=== PATIENT | female | born 1945 | race American Indian/Alaskan Native ===

== ENCOUNTER 2017-02-02 10:50 | Inpatient (IN) | payer OTHER ==
[~2017-02-02] VITALS: Ht 152.4 cm; Wt 79.4 kg
--- NOTE | ~2017-02-02 | EKG ---
[address] [address] ELECTROCARDIOGRAM REPORT Name: KRAIG PARDO Room #: 436-P [facility] [place] .R.#: [id number] Admission: 02/03/17 Attend Phys: Hilario Price Discharge: 02/03/17 Date of : 45 Report #: [id number] THIS REPORT FOR: //name// [facility] ED Test Date: 2017-02-02 Test Time: 11:15:24 Pat Name: KRAIG PARDO Department: Room: [facility] Gender: F [employer] Supervisor: [id number] : 1945 Requested By: Harjit Hdez Order Number: [id number] MD: Blayne Stephens Measurements Intervals [place] Rate: 72 P: 33 NE: 194 QRS: 1 QRSD: 112 T: 35 QT: 421 QTc: 461 Interpretive Statements Sinus rhythm Borderline intraventricular conduction delay No previous ECG available for comparison Electronically Signed On 02-03-2017 13:20:27 CDT by Blayne Stephens [email or web address] <ELECTRONICALLY SIGNED> By: Blayne Stephens MD 02/03/17 1320 14 Blayne Stephens MD /EMILY
[~2017-02-02 10:50] MED LIST: ALTACE10 M1 PO; BENTYL 20 MG TA20 M1 PO; CADUET 10 MG-11 EACH PO; CALCIUM PO; CENTRUM SILVER1 EAC1 PO; CYCLOBENZAPRINE10 MG PO; CYMBALTA60 MG PO; GLUCOPHAGE XR500 MG PO; IBUPROFEN 400400 M1 PO; KLOR-CON 1010 MEQ; KLOR-CON 1010 MEQ PO; LEVOTHROID125 MCG PO; NEXIUM40 MG PO; RANITIDINE 150150 MG PO; TRAMADOL 50 MG50 MG PO; TRIAMTERENE-HC1 EAC3 PO
[2017-02-02 10:54] VITALS: BP 203/87
[2017-02-02] MEDS ORDERED: ATIVAN0.5 MG (11:12)
[2017-02-02] MEDS ORDERED: LIDODERM1 EACH (11:12)
[2017-02-02] MEDS ORDERED: PAMELOR25 MG PO (11:13)
[2017-02-02] MEDS ORDERED: PREDNISONE 10 M10 MG PO (11:14)
[2017-02-02] MEDS ORDERED: ATORVASTATIN CA40 MG (11:14)
[2017-02-02] MEDS ORDERED: BYSTOLIC 5 MG5 M1 PO (11:15)
[2017-02-02] MEDS ORDERED: HYDROCODON-ACE1 EAC7 (11:15)
[2017-02-02 11:36] LABS: HEMATOCRIT 33.7 % (37.0-47.0); HEMOGLOBIN 11.2 gm/dL (12.0-15.0); MANUAL DIFF YES; MCH 30.6 pg (26.0-34.0); MCHC 33.2 g/dL (28.0-37.0); MCV 92.1 fL (80.0-100.0); PLATELET COUNT 405 thou/uL (150-400); RBC 3.66 mil/uL (4.20-5.00); RDW 13.8 % (10.5-14.5); WBC 16.1 thou/uL (4.0-11.0)
[2017-02-02 11:45] LABS: ANION GAP 10 mmol/L (7-16); BUN 41 mg/dL (7-18); CALCIUM 9.3 mg/dL (8.5-10.1); CHLORIDE 99 mmol/L (98-107); CO2 22 mmol/L (21-32); CREATININE 2.2 mg/dL (0.6-1.0); GLUCOSE 351 mg/dL (74-106); POTASSIUM 3.6 mmol/L (3.5-5.1); SODIUM 131 mmol/L (136-145)
[2017-02-02 11:54] LABS: ACETAMINOPHEN 4 ug/mL (10-30); ALBUMIN 2.8 g/dL (3.4-5.0); ALKALINE PHOSPHATASE 134 U/L (46-116); MAGNESIUM 1.9 mg/dL (1.8-2.4); SALICYLATE < 2.8 mg/dL (2.8-20.0); SGOT 18 U/L (15-37); SGPT 26 U/L (30-65); TOTAL BILIRUBIN 0.3 mg/dL (<0.1-1.0); TROPONIN-I < 0.04 ng/mL (<0.04-0.07)
[2017-02-02 11:55] LABS: ABSOLUTE NEUTROPHILS 14.5 thou/uL (1.4-8.2); ANISOCYTOSIS SLIGHT; TOTAL CELL COUNT 100
[2017-02-02 12:50] LABS: URINE BILIRUBIN NEGATIVE (Negative); URINE BLOOD NEGATIVE (Negative); URINE COLOR YELLOW; URINE GLUCOSE-RANDOM* NEGATIVE (Negative); URINE KETONES NEGATIVE (Negative); URINE PROTEIN (DIPSTICK) NEGATIVE (Negative); URINE UROBILINOGEN 0.2 E.U./dl (0.2-1.0)
[2017-02-02 12:52] LABS: URINE LEUKOCYTES-REFLEX 1+ (Negative)
[2017-02-02 12:57] LABS: AMP/METHAMP Negative (Negative); BARBITURATES Negative (Negative); BENZODIAZEPINES Negative (Negative); COCAINE Negative (Negative); METHADONE Negative (Negative); OPIATES POSITIVE (Negative); PCP Negative (Negative); THC Negative (Negative)
[2017-02-02 13:00] LABS: CASTS None Seen /LPF (None Seen); CRYSTALS None Seen /LPF (None Seen); SQUAMOUS >10 Many /LPF (0-3); URINE RBC 0-2 Rare /HPF (0-2); URINE WBC-REFLEX 6-15 Few /HPF (0-5)
[2017-02-02 13:01] LABS: RENAL EPITHELIAL CELLS 0-3 Few /LPF (None Seen); TRANSITIONAL EPITHEL CELL 0-3 Few /LPF (None Seen)
[2017-02-02 14:33] VITALS: BP 128/72
[2017-02-02 15:00] VITALS: BP 149/100
[2017-02-02 19:43] VITALS: BP 147/63
[2017-02-02 19:45] VITALS: BP 141/62
[2017-02-03 03:42] VITALS: BP 148/73
[2017-02-03 06:22] LABS: ABSOLUTE NEUTROPHILS 7.3 thou/uL (1.4-8.2); BASOPHILS 0.5 % (0.0-2.0); EOSINOPHILS 1.7 % (0.0-3.0); HEMATOCRIT 31.8 % (37.0-47.0); HEMOGLOBIN 10.4 gm/dL (12.0-15.0); LYMPHOCYTES 23.7 % (24.0-44.0); MCH 30.1 pg (26.0-34.0); MCHC 32.9 g/dL (28.0-37.0); MCV 91.5 fL (80.0-100.0); MONOCYTES 8.9 % (1.0-8.0); PLATELET COUNT 363 thou/uL (150-400); POLYS 65.2 % (36.0-66.0); RBC 3.47 mil/uL (4.20-5.00); RDW 13.9 % (10.5-14.5); WBC 11.2 thou/uL (4.0-11.0)
[2017-02-03 06:24] LABS: MANUAL DIFF NO
[2017-02-03 06:27] LABS: CALCIUM 9.9 mg/dL (8.5-10.1); CREATININE 1.8 mg/dL (0.6-1.0); POTASSIUM 3.3 mmol/L (3.5-5.1)
[2017-02-03 06:31] LABS: ALBUMIN 2.8 g/dL (3.4-5.0); PHOSPHORUS 3.3 mg/dL (2.5-4.9)
[2017-02-03 08:09] VITALS: BP 116/58
[2017-02-03] MEDS ORDERED: DURAGESIC25 MCG/HR TRANSDERM (09:57)
[2017-02-03] MEDS ORDERED: CEFUROXIME500 MG PO (09:57)
[2017-02-03] MEDS ORDERED: TRAMADOL 50 MG50 MG PO (09:58)
[2017-02-03 11:22] VITALS: BP 116/58
[2017-02-03 12:00] VITALS: BP 116/58
== END 2017-02-03 11:55 | disposition home or self-care (01) | DRG 880 ==
LOC: ER 10:50 → EROBS 13:56 → 4S 14:44 → ENTRNSPT 02-03 11:47 → EDTRNSPTSTS 02-03 11:50 → 4S 02-03 11:55
PROVIDERS: Emergency Medicine; Hospitalist
DX: R44.3 Hallucinations, unspecified (principal); N17.0 Acute kidney failure with tubular necrosis; G93.40 Encephalopathy, unspecified; N39.0 Urinary tract infection, site not specified; E11.9 Type 2 diabetes mellitus without complications; M19.90 Unspecified osteoarthritis, unspecified site; K21.9 Gastro-esophageal reflux disease without esophagitis; E03.9 Hypothyroidism, unspecified; T40.2X5A Adverse effect of other opioids, initial encounter; Y92.89 Other specified places as the place of occurrence of the external cause; Z79.899 Other long term (current) drug therapy; Z88.2 Allergy status to sulfonamides
CPT/HCPCS: 10102

== ENCOUNTER → 2019-05-14 | Outpatient (CLI) | payer OTHER ==
[~2019-05-14] MED LIST changes: +ATIVAN0.5 MG; +ATIVAN0.5 MG PO; +ATORVASTATIN CA40 MG; +BYSTOLIC 5 MG5 M1 PO; +CEFUROXIME250 MG PO; +CEFUROXIME500 MG PO; +DURAGESIC25 MCG/HR TRANSDERM; +GLYBURIDE 5 MG T5 M1 PO; +HYDROCODON-ACE1 EAC7; +HYDROCODON-ACE1 EAC8 PO; +LIDODERM1 EACH; +PAMELOR25 MG PO; +PREDNISONE 10 M10 MG PO
== END ==
LOC: SJCVCIMAG 13:09
DX: Z01.818 Encounter for other preprocedural examination (principal); I65.23 Occlusion and stenosis of bilateral carotid arteries; I08.2 Rheumatic disorders of both aortic and tricuspid valves; I27.20 Pulmonary hypertension, unspecified; I11.9 Hypertensive heart disease without heart failure; R94.31 Abnormal electrocardiogram [ECG] [EKG]; E78.00 Pure hypercholesterolemia, unspecified; E11.9 Type 2 diabetes mellitus without complications; Z79.4 Long term (current) use of insulin; G89.4 Chronic pain syndrome; E03.9 Hypothyroidism, unspecified; M19.90 Unspecified osteoarthritis, unspecified site; Z96.659 Presence of unspecified artificial knee joint; Z79.84 Long term (current) use of oral hypoglycemic drugs; Z79.899 Other long term (current) drug therapy; Z82.49 Family history of ischemic heart disease and other diseases of the circulatory system

== ENCOUNTER → 2019-05-16 | Outpatient (CLI) | payer OTHER | LOC: NUC 07:34 | DX: R07.9 Chest pain, unspecified (principal); I10 Essential (primary) hypertension; E78.00 Pure hypercholesterolemia, unspecified; E11.51 Type 2 diabetes mellitus with diabetic peripheral angiopathy without gangrene; Z79.899 Other long term (current) drug therapy ==